=== PATIENT | male | born 2005 | race Hispanic/Latino ===

== ENCOUNTER 2024-07-22 07:04 | Emergency (ER) | payer SELFPAY ==
[~2024-07-22] VITALS: Ht 177.8 cm; Wt 68.0 kg
[2024-07-22 07:05] VITALS: TEMP 97.1
[2024-07-22] MEDS: ONDANSETRON HCL INJ 2MG/ML 2ML 2 MG/ML VIAL IV STA (07:16)
[2024-07-22] MEDS ORDERED: ONDANSETRON HCL INJ 2MG/ML 2ML 2 MG/ML VIAL ONE (07:19)
[2024-07-22 07:29] LABS: BASOPHILS # (AUTO) 0.1 (0.0-0.1); BASOPHILS % 0.5 % (0.0-1.0); EOSINOPHILS # (AUTO) 0.2 (0.0-0.4); EOSINOPHILS % 1.2 % (0.0-6.0); HEMATOCRIT 45.5 % (38.2-49.6); HEMOGLOBIN 15.3 g/dL (14.0-18.0); LYMPHOCYTES # (AUTO) 2.5 (1.0-3.2); LYMPHOCYTES % 17.1 % (18.0-39.1); MEAN CORPUSCULAR HGB CONC 33.6 g/dL (31-35); MEAN CORPUSCULAR VOLUME 92.3 fL (81-99); MONOCYTES # (AUTO) 0.9 (0.2-0.8); MONOCYTES % 6.4 % (4.4-11.3); NEUTROPHILS # (AUTO) 10.8 (2.1-6.9); NEUTROPHILS % 74.3 % (38.7-80.0); PLATELET COUNT 275 x10e3/uL (140-360); RED BLOOD COUNT 4.93 x10e6/uL (4.3-5.7); RED CELL DISTRIBUTION WIDTH 12.3 % (11.7-14.4); WHITE BLOOD COUNT 14.48 x10e3/uL (4.8-10.8)
[2024-07-22] MEDS: SODIUM CHLORIDE 0.9% 1000ML 1,000 ML IV STA ×2 (07:40→07:43)
[2024-07-22 07:46] LABS: ALBUMIN 4.7 g/dL (3.5-5.0); ALBUMIN/GLOBULIN RATIO 1.1 (0.8-2.0); ANION GAP 21.1 mmol/L (8-16); CALCIUM 10.1 mg/dL (8.4-10.2); CREATININE, SERUM 1.23 mg/dL (0.72-1.25); TOTAL PROTEIN 8.9 g/dL (6.5-8.1)
[2024-07-22 07:47] LABS: POTASSIUM 3.1 mmol/L (3.5-5.1)
[2024-07-22 07:48] LABS: TROPONIN I 0.002 ng/mL (0-0.300)
[2024-07-22] MEDS ORDERED: IOPAMIDOL 370 MG/ML 100 ML INFUS..BTL INJ ONE (08:00)
[2024-07-22 09:49] VITALS: PULSE 86; RESP 16; O2SAT 100
== END 2024-07-22 10:10 | disposition home or self-care (01) ==
LOC: ER 07:18
DX: R10.11 Right upper quadrant pain (principal); R11.2 Nausea with vomiting, unspecified
CPT/HCPCS: 36415; 74177; 80053; 80320; 82550; 83690; 84484; 85025; 93005; 99284; J2405; J7030; Q9967